=== PATIENT | male | born 1940 | race African-American/Black ===

== ENCOUNTER 2017-04-24 10:12 | Inpatient (IN) | payer OTHER ==
[~2017-04-24] VITALS: Ht 177.8 cm; Wt 87.1 kg
[2017-04-24 11:22] LABS: BASOPHIL % 0.1 % (0-2); PLATELET COUNT 325 x10^3mcL (130-400); RED CELL DISTRIBUTION WIDTH 16.9 % (11.5-14.5)
[2017-04-24 11:35] LABS: CALCIUM 9.2 mg/dL (8.5-10.1); CARBON DIOXIDE 31.8 mmol/L (21-32); CHLORIDE SERUM 90 mmol/L (98-107); CREATININE SERUM 2.5 mg/dL (0.7-1.3); GLUCOSE SERUM 146 mg/dL (74-106); POTASSIUM SERUM 3.4 mmol/L (3.5-5.1); SODIUM SERUM 130 mmol/L (136-145)
[2017-04-24 11:38] LABS: ALBUMIN 3.6 g/dL (3.4-5.0); ALKALINE PHOSPHATASE 67 U/L (46-116); ALT/SGPT 16 U/L (16-63); AMYLASE 34 U/L (25-115); AST/SGOT 21 U/L (15-37); BILIRUBIN TOTAL 1.53 mg/dL (0.20-1.00); LIPASE 57 IU/L (73-393); TOTAL PROTEIN, SERUM 7.9 g/dL (6.4-8.2)
[2017-04-24 12:00] LABS: microscopic required? NO
[2017-04-24 12:08] LABS: UA SPECIFIC GRAVITY 1.015 (1.005-1.035); urine erythrocyte NEGATIVE (NEGATIVE)
[2017-04-24 14:29] LABS: T3 TOTAL 0.55 ng/mL
[2017-04-24 15:40] VITALS: BP 161/88
[2017-04-24 15:41] LABS: FREE T4 1.66 ng/dL (0.76-1.46); FREE THYROXINE INDEX 4.2 ug/dL (1.4-4.5); T4(THYROXINE) 10.3 ug/dL (4.7-13.3)
[2017-04-24 15:46] LABS: MAGNESIUM 2.2 mg/dL (1.8-2.4); PHOSPHOROUS 3.7 mg/dL (2.5-4.9)
[2017-04-24 15:49] VITALS: Ht 177.8 cm; Wt 87.1 kg
[2017-04-24 15:53] LABS: CHOLESTEROL/HDL RATIO 2.6
[2017-04-24 16:51] VITALS: BP 133/80
[2017-04-24 19:20] VITALS: BP 155/78
[2017-04-25 06:20] VITALS: BP 178/87
[2017-04-25 06:44] LABS: PLATELET COUNT 285 x10^3mcL (130-400)
[2017-04-25 06:49] LABS: IRON 75 ug/dL (65-170)
[2017-04-25 06:52] LABS: CALCIUM 8.4 mg/dL (8.5-10.1); CARBON DIOXIDE 27.5 mmol/L (21-32); CHLORIDE SERUM 99 mmol/L (98-107); GLUCOSE SERUM 112 mg/dL (74-106); MAGNESIUM 2.1 mg/dL (1.8-2.4); PHOSPHOROUS 2.9 mg/dL (2.5-4.9); POTASSIUM SERUM 3.4 mmol/L (3.5-5.1); SODIUM SERUM 135 mmol/L (136-145)
[2017-04-25 06:58] LABS: RED CELL DISTRIBUTION WIDTH 17.1 % (11.5-14.5)
[2017-04-25 07:22] LABS: TOTAL IRON BINDING CAPACITY 182 ug/dL (250-450)
[2017-04-25 08:00] VITALS: BP 179/85
[2017-04-25 10:45] LABS: ATYPICAL LYMPH 1 %; BAND NEUTROPHIL 15 % (0-10); BASOPHIL 0 % (0-2); MONOCYTE 13 % (0-7); SEGMENTED NEUTROPHILS 64 % (37-75)
[2017-04-25 10:46] LABS: PLATELET MORPHOLOGY PLATELETS NORMAL; rbc morphology (normal/abnorm) ABNORMAL (NORMAL)
[2017-04-25 10:51] VITALS: BP 164/95
[2017-04-25 11:19] VITALS: BP 146/54
[2017-04-25 15:13] VITALS: BP 137/90
[2017-04-26 03:38] VITALS: BP 133/80
[2017-04-26 05:31] LABS: BASOPHIL % 0.1 % (0-2); PLATELET COUNT 292 x10^3mcL (130-400)
[2017-04-26 05:41] LABS: RED CELL DISTRIBUTION WIDTH 17.2 % (11.5-14.5)
[2017-04-26 05:42] LABS: CARBON DIOXIDE 31.2 mmol/L (21-32); CHLORIDE SERUM 101 mmol/L (98-107); GLUCOSE SERUM 143 mg/dL (74-106); POTASSIUM SERUM 3.4 mmol/L (3.5-5.1); SODIUM SERUM 135 mmol/L (136-145)
[2017-04-26 05:43] LABS: CALCIUM 8.4 mg/dL (8.5-10.1); CREATININE SERUM 1.4 mg/dL (0.7-1.3)
[2017-04-26 08:01] VITALS: BP 123/72
[2017-04-26 11:15] VITALS: BP 141/88
[2017-04-26 15:41] VITALS: BP 134/85
[2017-04-26 23:09] VITALS: BP 129/72
[2017-04-27] VITALS (8 sets, daily range): BP systolic 118–150; BP diastolic 83–95
[2017-04-27 06:56] LABS: CALCIUM 8.8 mg/dL (8.5-10.1); CARBON DIOXIDE 29.9 mmol/L (21-32); CHLORIDE SERUM 98 mmol/L (98-107); CREATININE SERUM 1.3 mg/dL (0.7-1.3); GLUCOSE SERUM 150 mg/dL (74-106); POTASSIUM SERUM 3.8 mmol/L (3.5-5.1); SODIUM SERUM 135 mmol/L (136-145)
[2017-04-27 07:51] LABS: PLATELET COUNT 321 x10^3mcL (130-400); RED CELL DISTRIBUTION WIDTH 17.1 % (11.5-14.5)
[2017-04-28 06:06] VITALS: BP 149/94
[2017-04-28 06:50] LABS: CALCIUM 9.2 mg/dL (8.5-10.1); CARBON DIOXIDE 30.6 mmol/L (21-32); CHLORIDE SERUM 97 mmol/L (98-107); CREATININE SERUM 1.4 mg/dL (0.7-1.3); GLUCOSE SERUM 155 mg/dL (74-106); POTASSIUM SERUM 3.5 mmol/L (3.5-5.1); SODIUM SERUM 137 mmol/L (136-145)
[2017-04-28 07:30] VITALS: BP 123/75
[2017-04-28 09:00] LABS: BASOPHIL % 0.1 % (0-2); PLATELET COUNT 364 x10^3mcL (130-400)
[2017-04-28 09:01] LABS: RED CELL DISTRIBUTION WIDTH 17.5 % (11.5-14.5)
[2017-04-28 09:06] VITALS: BP 143/92
[2017-04-28 14:50] VITALS: BP 154/85
[2017-04-28 18:40] VITALS: BP 116/79
[2017-04-28 21:08] VITALS: BP 134/80
[2017-04-29 04:39] VITALS: BP 140/80
[2017-04-29 06:24] LABS: CALCIUM 8.5 mg/dL (8.5-10.1); CARBON DIOXIDE 35.2 mmol/L (21-32); CHLORIDE SERUM 101 mmol/L (98-107); CREATININE SERUM 1.3 mg/dL (0.7-1.3); GLUCOSE SERUM 119 mg/dL (74-106); POTASSIUM SERUM 3.3 mmol/L (3.5-5.1); SODIUM SERUM 143 mmol/L (136-145)
[2017-04-29 07:27] LABS: BASOPHIL % 1.7 % (0-2)
[2017-04-29 07:33] LABS: PLATELET COUNT 434 x10^3mcL (130-400); RED CELL DISTRIBUTION WIDTH 15.9 % (11.5-14.5)
[2017-04-29 10:24] VITALS: BP 141/88
[2017-04-29 13:46] VITALS: BP 120/78
[2017-04-29 16:37] VITALS: BP 124/84
[2017-04-29 21:38] VITALS: BP 141/83
[2017-04-30] VITALS (7 sets, daily range): BP systolic 130–163; BP diastolic 56–100
[2017-04-30 06:56] LABS: PLATELET COUNT 382 x10^3mcL (130-400)
[2017-04-30 07:22] LABS: BASOPHIL % 0 % (0-2); RED CELL DISTRIBUTION WIDTH 17.8 % (11.5-14.5)
[2017-04-30 07:34] LABS: CARBON DIOXIDE 31.5 mmol/L (21-32); CHLORIDE SERUM 106 mmol/L (98-107); CREATININE SERUM 1.1 mg/dL (0.7-1.3); GLUCOSE SERUM 85 mg/dL (74-106); MAGNESIUM 1.9 mg/dL (1.8-2.4); PHOSPHOROUS 2.7 mg/dL (2.5-4.9); POTASSIUM SERUM 3.2 mmol/L (3.5-5.1); SODIUM SERUM 146 mmol/L (136-145)
[2017-05-01 06:17] VITALS: BP 132/81
[2017-05-01 07:11] LABS: CALCIUM 7.7 mg/dL (8.5-10.1); CARBON DIOXIDE 29.5 mmol/L (21-32); CHLORIDE SERUM 106 mmol/L (98-107); CREATININE SERUM 1.1 mg/dL (0.7-1.3); GLUCOSE SERUM 91 mg/dL (74-106); MAGNESIUM 1.7 mg/dL (1.8-2.4); PHOSPHOROUS 2.2 mg/dL (2.5-4.9); POTASSIUM SERUM 3.2 mmol/L (3.5-5.1); SODIUM SERUM 142 mmol/L (136-145)
[2017-05-01 07:20] LABS: PLATELET COUNT 369 x10^3mcL (130-400)
[2017-05-01 07:21] LABS: BASOPHIL % 0 % (0-2); RED CELL DISTRIBUTION WIDTH 17.8 % (11.5-14.5)
[2017-05-01 10:00] VITALS: BP 135/72
[2017-05-01 13:38] VITALS: BP 124/51
[2017-05-01 17:01] VITALS: BP 164/97
[2017-05-01 22:23] VITALS: BP 141/87
[2017-05-02 05:40] VITALS: BP 105/69
[2017-05-02 06:42] LABS: BASOPHIL % 0.5 % (0-2); PLATELET COUNT 284 x10^3mcL (130-400)
[2017-05-02 06:43] LABS: CALCIUM 7.6 mg/dL (8.5-10.1); CARBON DIOXIDE 28.8 mmol/L (21-32); CHLORIDE SERUM 106 mmol/L (98-107); CREATININE SERUM 1.1 mg/dL (0.7-1.3); GLUCOSE SERUM 105 mg/dL (74-106); MAGNESIUM 2.3 mg/dL (1.8-2.4); PHOSPHOROUS 2.4 mg/dL (2.5-4.9); POTASSIUM SERUM 3.3 mmol/L (3.5-5.1); SODIUM SERUM 141 mmol/L (136-145)
[2017-05-02 06:46] LABS: RED CELL DISTRIBUTION WIDTH 18.1 % (11.5-14.5)
[2017-05-02 07:45] VITALS: BP 130/74
[2017-05-02 14:00] VITALS: BP 134/82
[2017-05-02 17:04] VITALS: BP 143/87
[2017-05-02 21:40] VITALS: BP 148/87
[2017-05-03] VITALS (9 sets, daily range): BP systolic 141–178; BP diastolic 84–101
[2017-05-03 07:46] LABS: CALCIUM 7.9 mg/dL (8.5-10.1); CARBON DIOXIDE 29.1 mmol/L (21-32); CHLORIDE SERUM 107 mmol/L (98-107); CREATININE SERUM 1.1 mg/dL (0.7-1.3); GLUCOSE SERUM 88 mg/dL (74-106); PHOSPHOROUS 2.7 mg/dL (2.5-4.9); POTASSIUM SERUM 3.7 mmol/L (3.5-5.1); SODIUM SERUM 141 mmol/L (136-145)
[2017-05-03 08:04] LABS: BASOPHIL % 0.4 % (0-2); PLATELET COUNT 301 x10^3mcL (130-400)
[2017-05-03 08:05] LABS: RED CELL DISTRIBUTION WIDTH 18.2 % (11.5-14.5)
[2017-05-04 05:38] VITALS: BP 157/88
[2017-05-04 09:42] VITALS: BP 149/92
[2017-05-04 12:04] VITALS: BP 149/92
[2017-05-04] MEDS ORDERED: FLO4 PO (12:08)
[2017-05-04] MEDS ORDERED: ZES20 PO (12:08)
[2017-05-04] MEDS ORDERED: NOR5 PO (12:09)
[2017-05-04] MEDS ORDERED: PROS5 PO (12:10)
[2017-05-04] MEDS ORDERED: LAC PO (12:12)
[2017-05-04] MEDS ORDERED: LEVAQUIN750 MG PO (12:13)
[2017-05-04] MEDS ORDERED: CLEOCIN HCL300 MG PO (12:13)
[2017-05-04 13:49] VITALS: BP 150/94
[2017-05-04 16:32] VITALS: BP 156/91
== END 2017-05-04 19:10 | disposition home health service (06) | DRG 350 ==
LOC: ED 10:12 → DU 13:12 → IC 04-25 10:50 → DU 04-26 15:37 → IC 04-26 15:57 → DU 04-26 15:59
PROVIDERS: Emergency Medicine; Family Medicine; Family Medicine Sports Medicine; Student in an Organized Health Care Education/Training Program; Surgery; ADMIT Family Medicine
PROC: 0YU50JZ Supplement Right Inguinal Region with Synthetic Substitute, Open Approach (ICD-10-PCS; principal; 2017-04-25 08:00)
DX: K40.30 Unilateral inguinal hernia, with obstruction, without gangrene, not specified as recurrent (principal); N17.0 Acute kidney failure with tubular necrosis; J69.0 Pneumonitis due to inhalation of food and vomit; E87.2 Acidosis; E87.1 Hypo-osmolality and hyponatremia; R33.8 Other retention of urine; E87.5 Hyperkalemia; E83.51 Hypocalcemia; E83.42 Hypomagnesemia; E83.39 Other disorders of phosphorus metabolism; I10 Essential (primary) hypertension; D64.9 Anemia, unspecified; M51.36 Other intervertebral disc degeneration, lumbar region; E05.90 Thyrotoxicosis, unspecified without thyrotoxic crisis or storm; Z68.28 Body mass index [BMI] 28.0-28.9, adult
CPT/HCPCS: 76770; 83880; 84439; 94150; 97110-GP; 97116-GP; 97530-GP; A4628; C1781; J0330; J0360; J1644; J1940; J2250; J2270; J2405; J2543; J2704; J2710; J3010; J3475; J3480; J3490; J7030; J7040; J7120; J7620; J8597; Q0092